=== PATIENT | male | born 1970 | race Caucasian/White ===

== ENCOUNTER 2020-03-11 12:17 | Outpatient (CLI) | payer BC, SELFPAY ==
[2020-03-11 13:12] LABS: Estmated Average Glucose 157; Hemoglobin A1C 7.1 % (4.0-6.0)
== END 2020-03-11 12:18 | disposition home or self-care (01) ==
LOC: LAB 12:18
PROVIDERS: Family Provider Nurse Practitioner Family; PCP Nurse Practitioner Family; Visit Provider Internal Medicine Critical Care Medicine
DX: D86.9 Sarcoidosis, unspecified (principal)
CPT/HCPCS: 83036

== ENCOUNTER 2020-03-30 12:49 | Outpatient (CLI) | payer BC, SELFPAY ==
--- NOTE | 2020-03-30 13:00 | CT_ITS ---
WS: [id number] CT CHEST WITHOUT INTRAVENOUS CONTRAST HISTORY: Pulmonary sarcoidosis TECHNIQUE: Contiguous 5 mm axial imaging performed on the thorax. Coronal and sagittal reformats are submitted. All CT scans at [facility] use at least one of these dose optimization techniq ues: automated exposure control; mA and/or kV adjustment per patient size (includes targeted exams wh ere dose is matched to clinical indication); or iterative reconstruction. CONTRAST: None DLP: 1051.65 mGycm COMPARISON: 12/17/2018 Lungs and central airway: Numerous pulmonary nodules are noted in the RIGHT lung. These are predomina ntly in a perilymphatic distribution and along the fissures of the RIGHT lung. Additional pulmonary n odules in the periphery of the LEFT upper lobe and RIGHT lower lobe. Largest nodules measure 6 to 7 m m. No progression since the prior study. Partially calcified nodule at the LEFT lung base is stable. There is thickening along the RIGHT hilum with areas of partial atelectasis and bronchial wall thicke lorelei and nodularity. Similar to the prior study. Partial atelectasis of the RIGHT middle lobe with na rrowing of the RIGHT middle lobe bronchus. Pleura: Normal. No pleural effusion. Heart and pericardium: Normal size heart. No pericardial effusion. Mediastinum and addie: Numerous mediastinal and hilar lymph nodes. Majority of the lymph nodes are sub centimeter. Largest lymph node along the inferior LEFT paratracheal region measures 14 mm similar to the prior study. Partially calcified subcarinal lymph node. Overall the size and number of the lymph nodes is unchanged since 12/17/2018. No axillary adenopathy. Vessels: Normal size aortic and pulmonary artery. No coronary artery calcifications. Chest wall and lower neck: LEFT gynecomastia. Upper abdomen: Mild hepatic steatosis. No adrenal mass. Osseous structures: Degenerative disc disease and endplate osteophytes. CT/CT chest wo con [id number] IMPRESSION: 1. Multiple bilateral nodules in a perilymphatic distribution and along the fi ssures with adenopathy. Consistent with a history of sarcoidosis. No increase i n size of the nodules or lymph nodes since 12/17/2018. 2. Partial atelectasis RIGHT middle lobe with mild narrowing of the RIGHT midd le lobe bronchus due to bronchial wall thickening and nodularity.
== END 2020-03-30 12:50 | disposition home or self-care (01) ==
LOC: RADWPI 12:56
PROVIDERS: Family Provider Nurse Practitioner Family; PCP Nurse Practitioner Family; Visit Provider Internal Medicine Critical Care Medicine
DX: D86.89 Sarcoidosis of other sites (principal); J98.11 Atelectasis; R91.8 Other nonspecific abnormal finding of lung field
CPT/HCPCS: 71250

== ENCOUNTER 2020-04-21 14:29 | Outpatient (CLI) | payer BC, SELFPAY ==
--- NOTE | 2020-04-21 15:07 | PFTS_ITS ---
Date of Study:04/21/20 Date of Dictation: MECHANICS: Forced vital capacity (FVC) is reduced. Forced expiratory volume in one second (FEV1) is reduced. FEV1/FVC is reduced. FLOW VOLUME LOOP: Reduced flow at all lung volumes with scooping. LUNG VOLUMES: Total lung capacity (TLC) is normal. Residual volume (RV) is elevated. DIFFUSING CAPACITY FOR CARBON MONOXIDE: Normal. INTERPRETATION: The pulmonary function tests are consistent with moderate obstruction. There is significant postbronchodilator response. Lung volumes are consistent with air trapping. Gas exchange (DLCO) is normal. MTDD
== END 2020-04-21 14:30 | disposition home or self-care (01) ==
LOC: RT 14:32
PROVIDERS: PCP Nurse Practitioner Family; Visit Provider Internal Medicine Critical Care Medicine
DX: D86.9 Sarcoidosis, unspecified (principal)
CPT/HCPCS: 94060; 94726; 94729; J7611

== ENCOUNTER → 2020-06-08 13:15 | Outpatient (BNVA) | payer BC, SELFPAY | PROVIDERS: PCP Nurse Practitioner Family; Visit Provider Internal Medicine Critical Care Medicine | DX: E11.9 Type 2 diabetes mellitus without complications (principal); D86.9 Sarcoidosis, unspecified; G47.33 Obstructive sleep apnea (adult) (pediatric); R14.0 Abdominal distension (gaseous) | CPT/HCPCS: 83036 ==

== ENCOUNTER → 2020-06-25 10:19 | Outpatient (BNVA) | payer BC, SELFPAY | PROVIDERS: PCP Nurse Practitioner Family; Visit Provider Internal Medicine | DX: D86.9 Sarcoidosis, unspecified (principal) | CPT/HCPCS: 87635 ==

== ENCOUNTER 2020-06-30 08:11 | Outpatient (CLI) | payer BC, SELFPAY | END 2020-06-30 08:12 | disposition home or self-care (01) | LOC: RT 08:13 | PROVIDERS: PCP Nurse Practitioner Family; Visit Provider Internal Medicine Critical Care Medicine | DX: D86.9 Sarcoidosis, unspecified (principal) | CPT/HCPCS: 94010; 94729 ==

== ENCOUNTER → 2020-09-16 11:00 | Outpatient (BNVA) | payer BC, SELFPAY | PROVIDERS: PCP Nurse Practitioner Family; Referring Provider Orthopaedic Surgery; Visit Provider Specialist | DX: G89.29 Other chronic pain (principal); M25.551 Pain in right hip; Z79.899 Other long term (current) drug therapy | CPT/HCPCS: 20610; 73502; 99203; 99204; J1030; J3490 ==

== ENCOUNTER → 2020-10-15 09:49 | Outpatient (BNVA) | payer BC, SELFPAY | PROVIDERS: PCP Nurse Practitioner Family; Visit Provider Nurse Practitioner Family | DX: D86.9 Sarcoidosis, unspecified (principal); E83.119 Hemochromatosis, unspecified; E11.9 Type 2 diabetes mellitus without complications; G47.33 Obstructive sleep apnea (adult) (pediatric); R14.0 Abdominal distension (gaseous); R31.9 Hematuria, unspecified; N20.0 Calculus of kidney; Z13.6 Encounter for screening for cardiovascular disorders; L20.9 Atopic dermatitis, unspecified | CPT/HCPCS: 74018; 80053; 80061; 81000; 82728; 83036; 83550; 85025; 87635 ==

== ENCOUNTER 2020-10-21 08:36 | Outpatient (CLI) | payer BC, SELFPAY ==
--- NOTE | 2020-10-21 09:57 | PFTS_ITS ---
Date of Study:10/21/20 Date of Dictation: MECHANICS: Forced vital capacity (FVC) is . Forced expiratory volume in one second (FEV1) is . FEV1/FVC is . FLOW VOLUME LOOP: . LUNG VOLUMES: Total lung capacity (TLC) is . Residual volume (RV) is . DIFFUSING CAPACITY FOR CARBON MONOXIDE: . INTERPRETATION: The pulmonary function tests are . mechanics and lung volumes. Gas exchange (DLCO) is . MTDD
--- NOTE | 2020-10-21 09:57 | PFTS_ITS ---
Date of Study:10/21/20 Date of Dictation: MECHANICS: Forced vital capacity (FVC) is reduced. Forced expiratory volume in one second (FEV1) is reduced. FEV1/FVC is reduced. FLOW VOLUME LOOP: Reduced flow at all lung volumes with significant scooping. LUNG VOLUMES: Total lung capacity (TLC) is normal. Residual volume (RV) is increased. DIFFUSING CAPACITY FOR CARBON MONOXIDE: Normal. INTERPRETATION: The postbronchodilator spirometry is consistent with moderate obstruction. There is no significant postbronchodilator response. Lung volumes are consistent with air trapping. Gas exchange (DLCO) is normal. MTDD
== END 2020-10-21 08:37 | disposition home or self-care (01) ==
LOC: RT 08:38
PROVIDERS: PCP Nurse Practitioner Family; Visit Provider Internal Medicine Critical Care Medicine
DX: D86.9 Sarcoidosis, unspecified (principal)
CPT/HCPCS: 94060; 94726; 94729; J7611

== ENCOUNTER 2020-11-02 13:02 | Outpatient (CLI) | payer BC, SELFPAY ==
--- NOTE | 2020-11-02 13:30 | US_ITS ---
WS: [id number] RIGHT UPPER QUADRANT ULTRASOUND HISTORY: Elevated liver enzymes COMPARISON: None available. Liver: 15.0 cm in length. Normal size liver. Coarsened echotexture with no bile duct dilatation or ma ss. Gallbladder: Normally distended gallbladder with no stones or wall thickening. CBD: 0.3 cm Pancreas: Normal size and echogenicity. Right kidney: 10.6 cm in length. Normal size and echogenicity. No hydronephrosis or mass. Aorta and IVC: Unremarkable abdominal aorta and IVC. No ascites. US/US liver [id number] IMPRESSION: Mild hepatic steatosis. Negative gallbladder.
== END 2020-11-02 13:03 | disposition home or self-care (01) ==
LOC: RAD 13:05
PROVIDERS: PCP Nurse Practitioner Family; Visit Provider Internal Medicine Critical Care Medicine
DX: R94.5 Abnormal results of liver function studies (principal); K76.0 Fatty (change of) liver, not elsewhere classified
CPT/HCPCS: 76705

== ENCOUNTER 2021-01-07 12:13 | Outpatient (CLI) | payer BC, SELFPAY ==
--- NOTE | 2021-01-07 12:44 | XR_ITS ---
WS: [id number] DEXA (DUAL ENERGY X-RAY ABSORPTIOMETRY) Bone mineral density was performed using a [employer] machine. HISTORY: CURRENT USE OF STEROID MEDICATION COMPARISON: None available. Lumbar spine BMD (L1-L4): 1.270 g/cm2 T score: 0.4 Z score: -0.2 Total hip BMD: Left: 0.991 g/cm2. T score: -0.8 Z score: -0.9 Right: 1.025 g/cm2. T score: -0.5 Z score: -0.7 10 year probability of a major osteoporotic fracture is 11%. XR/XR DEXA axial skeleton* [id number] IMPRESSION: NORMAL BONE MINERAL DENSITY.
== END 2021-01-07 12:14 | disposition home or self-care (01) ==
LOC: RADWPI 12:43
PROVIDERS: PCP Nurse Practitioner Family; Visit Provider Family Medicine
DX: Z79.52 Long term (current) use of systemic steroids (principal)
CPT/HCPCS: 77080

== ENCOUNTER → 2021-03-11 16:43 | Outpatient (BNVA) | payer BC, SELFPAY | PROVIDERS: PCP Family Medicine | DX: Z20.822 Contact with and (suspected) exposure to COVID-19 (principal) | CPT/HCPCS: 87635 ==

== ENCOUNTER 2021-03-14 10:00 | Outpatient (CLI) | payer BC, SELFPAY ==
--- NOTE | 2021-03-14 10:39 | PFTS_ITS ---
Date of Study:03/14/21 Date of Dictation: MECHANICS: Forced vital capacity (FVC) is reduced. Forced expiratory volume in one second (FEV1) is reduced. FEV1/FVC is reduced. FLOW VOLUME LOOP: Reduced flow at all lung volumes with scooping. LUNG VOLUMES: Not measured DIFFUSING CAPACITY FOR CARBON MONOXIDE: Normal. INTERPRETATION: The spirometry is consistent with moderate obstruction. Component of restriction cannot rule out in the absence of lung volume measurements. Gas exchange (DLCO) is normal. MTDD
== END 2021-03-14 10:01 | disposition home or self-care (01) ==
LOC: RT 10:01
PROVIDERS: PCP Family Medicine; Visit Provider Internal Medicine Critical Care Medicine
DX: D86.9 Sarcoidosis, unspecified (principal)
CPT/HCPCS: 94010; 94729

== ENCOUNTER → 2022-01-20 11:04 | Outpatient (BNVA) | payer BC, SELFPAY | PROVIDERS: PCP Family Medicine; Visit Provider Internal Medicine Critical Care Medicine | DX: D86.9 Sarcoidosis, unspecified (principal); E11.9 Type 2 diabetes mellitus without complications; E83.119 Hemochromatosis, unspecified; R06.00 Dyspnea, unspecified | CPT/HCPCS: 80053; 82728; 83036; 85025 ==

== ENCOUNTER 2022-02-23 16:37 | Outpatient (CLI) | payer BC, SELFPAY | END 2022-02-23 16:38 | disposition home or self-care (01) | PROVIDERS: PCP Family Medicine; Visit Provider Family Medicine | DX: R19.7 Diarrhea, unspecified (principal) | CPT/HCPCS: 87493; 87506 ==

== ENCOUNTER 2022-03-23 11:40 | Outpatient (CLI) | payer BC, SELFPAY ==
--- NOTE | 2022-03-23 14:45 | PFTS_ITS ---
Date of Study:03/23/22 Date of Dictation: 03/27/2022 MECHANICS: Postbronchodilator forced vital capacity (FVC) is reduced 4.03 L 75% predicted Postbronchodilator forced expiratory volume in one second (FEV1) is moderately reduced. 2.64 L 63% predicted. FEV1/FVC is reduced. There is no significant bronchodilator response. FLOW VOLUME LOOP: Scooping of expiratory limb suggestive of airflow obstruction. LUNG VOLUMES: Not measured DIFFUSING CAPACITY FOR CARBON MONOXIDE: Normal INTERPRETATION: The postbronchodilator spirometry consistent with moderate obstruction. Lung volumes not measured. Gas transfer normal. Correlate clinically. MTDD
== END 2022-03-23 11:41 | disposition home or self-care (01) ==
PROVIDERS: PCP Family Medicine; Visit Provider Internal Medicine Critical Care Medicine
DX: D86.9 Sarcoidosis, unspecified (principal)
CPT/HCPCS: 94060; 94729

== ENCOUNTER 2022-08-30 06:15 | Outpatient (CLI) | payer BC, SELFPAY ==
--- NOTE | 2022-08-30 | CT_ITS ---
WS: [id number] CT CHEST CT-HIGH RESOLUTION, NONCONTRAST. HISTORY: Interstitial lung disease. Technique: High-resolution chest CT is performed in inspiration, expiration, supine and prone positio lorelei. All CT scans at [facility] use at least one of these dose optimization techniques: automated exposure control; mA and/or kV adjustment per patient size (includes targeted exams where dose is mat ched to clinical indication); or iterative reconstruction. DLP: 3136.52 mGy.cm COMPARISON: 03/30/2020 Findings: New subsolid irregular shaped opacification in the RIGHT upper lobe measures 2.7 x 1.8 cm. Conglomerate mass with atelectasis RIGHT middle lobe is increasing in size. Increasing consolidation and atelectasis with thickening and obstruction of the proximal bronchus. Additional numerous small nodules in a perilymphatic distribution predominantly in the upper lobes an d the RIGHT middle lobe and to a lesser extent the RIGHT lower lobe. No progression of the nodules wi thin the central thorax in a perilymphatic distribution. Numerous mediastinal and hilar lymph nodes are reidentified. High LEFT paratracheal lymph node measur es 1.3 cm. Aortopulmonary window lymph node 1.4 cm. Lymph nodes in the hilar regions are difficult to define without IV contrast but there is fullness in the hilar regions. Some these lymph nodes are ca lcified. With the patient in prone positioning it conglomerate mass in the RIGHT middle lobe does not improve. No change in the new RIGHT upper lobe opacification. There is no air trapping. No bronchiectasis or honeycombing. Mild bilateral gynecomastia. No adrenal mass. CT/CT chest wo con [id number] Impression: 1. Changes of sarcoidosis with mild progression since 03/30/2020. Increasing co nglomerate mass/atelectasis in the RIGHT middle lobe. 2. No obvious improvement in the mediastinal or hilar lymph nodes. 3. New irregular subsolid opacification in the RIGHT upper lobe measures 2.7 x 1.8 cm. This nodule is in the periphery and needs to be further evaluated. May be an area of pneumonia or pneumonitis. Neoplasm is a consideration. Recommend follow-up chest CT in 3 months.
== END 2022-08-30 06:16 | disposition home or self-care (01) ==
LOC: RAD 06:17
PROVIDERS: PCP Family Medicine; Visit Provider Pain Medicine Interventional Pain Medicine
DX: D86.9 Sarcoidosis, unspecified (principal); J84.9 Interstitial pulmonary disease, unspecified
CPT/HCPCS: 71250

== ENCOUNTER 2023-02-06 08:28 | Outpatient (CLI) | payer BC, SELFPAY ==
--- NOTE | 2023-02-06 09:45 | USCV_ITS ---
Helene Calle Age: 52 Gender: M : 1970 Exam Date: 02/06/2023 09:24 Ordering Phys: Timothy Sue MD Technologist: [email or web address] Exam Location: [facility] [place] Indication: pulmonary hypertension BP: 135 / 80 HR: 81 Rhythm: Sinus Technical Quality: Adequate MEASUREMENTS (Male / Female) Normal Values 2D ECHO LV Diastolic Diameter PLAX 4.5 cm 4.2 - 5.9 / 3.9 - 5.3 cm LV Systolic Diameter PLAX 2.6 cm IVS Diastolic Thickness 2.4 cm 0.6 - 1.0 / 0.6 - 0.9 cm IVS Systolic Thickness 1.4 cm LVPW Diastolic Thickness 1.1 cm 0.6 - 1.0 / 0.6 - 0.9 cm LVPW Systolic Thickness 2.3 cm LVOT Diameter 3.1 cm LV Ejection Fraction 2D Teich 69.0 % LV Ejection Fraction MOD 2C 49.2 % LV Ejection Fraction 2C AL 53.1 % LA Diameter 2.6 cm LA Width 2.5 cm LA Height 3.4 cm RA Width 4.3 cm RA Height 4.1 cm Aorta at Sinotubular Diameter 3.0 cm IVC Diameter 1.7 cm M-MODE MV E Point Septal Separation 1.1 cm DOPPLER AV Peak Velocity 104.0 cm/s LVOT Peak Velocity 83.0 cm/s AV Area Cont Eq vti 7.2 cm squared AV Area Cont Eq pk 6.2 cm squared MV Area PHT 3.3 cm squared Mitral E to A Ratio 0.9 MV E' Velocity 44.5 cm/s Mitral E to MV E' Ratio 6.8 Mitral E to LV E' Lateral Ratio 5.7 Mitral E to LV E' Septal Ratio 8.6 TR Peak Velocity 91.0 cm/s TR Peak Gradient 3.3 mmHg Right Atrial Pressure 3.0 mmHg Pulmonary Artery Systolic Pressu 6.3 mmHg PV Peak Velocity 88.0 cm/s RV Acceleration Time 0.1 s RV Ejection Time 0.3 s RV AcT/ET 0.5 FINDINGS Left Ventricle Normal left ventricular size and systolic function, EF 55%,( visual).no regional wall motion abnormalities. Right Ventricle The right ventricle is normal in size and function. Right Atrium The right atrium is normal in size. Left Atrium The left atrium is normal in size. Mitral Valve No gross abnormalities Aortic Valve No gross abnormalities noted Tricuspid Valve No gross abnormalities noted Pulmonic Valve No gross abnormalities noted Pericardium No pericardial effusion. Aorta Normal ascending aorta dimension. IVC The inferior vena cava appears normal. CONCLUSIONS Normal left ventricular size and systolic function, EF 55%,( visual). No regional wall motion abnormalities. Normal cardiac chamber sizes. No significant valvular abnormalities There is no pericardial effusion. There are no intracardiac masses. Compared to the study from March 13, there may not be a significant change Dr Bryan Evans MD FACC (Electronically Signed) Final Date: 07 February 2023 23:00 S
== END 2023-02-06 08:29 | disposition home or self-care (01) ==
PROVIDERS: PCP Family Medicine; Referring Provider Pain Medicine Interventional Pain Medicine; Visit Provider Family Medicine
DX: I27.20 Pulmonary hypertension, unspecified (principal)
CPT/HCPCS: 93306

== ENCOUNTER 2024-02-26 20:00 | Outpatient (CLI) | payer BC, SELFPAY | END 2024-02-26 20:01 | disposition home or self-care (01) | LOC: SLEEP 02-27 05:46 | PROVIDERS: PCP Family Medicine; Visit Provider Family Medicine | DX: G47.33 Obstructive sleep apnea (adult) (pediatric) (principal) | CPT/HCPCS: 95811 ==